=== PATIENT | female | born 1945 | race Caucasian/White ===

== ENCOUNTER 2024-02-15 08:19 | Observation (INO) | payer MEDICARE, OTHER ==
[2024-02-15 09:27] LABS: #Basophils 0.04 10x3/uL (0.0-0.2); #Eosinphils 0.01 10x3/uL (0.0-0.5); #Monocytes 1.27 10x3/uL (0.0-1.1); #Neutrophils 14.84 10x3/uL (1.5-8.4); %Basophils 0.2 % (0.0-2.0); %Eosinophils 0.1 % (0.0-6.0); %Lymphocytes 8.9 % (18.0-47.0); %Monocytes 7.1 % (0.0-10.0); %Neutrophils 83.1 % (40.0-75.0); Hemoglobin 13.3 g/dL (12.0-15.5); Mean Corpuscular HGB CONC 34.1 g/dL (32.0-36.0); Mean Corpuscular Hemoglobin 30.6 pg (27.0-33.0); Mean Corpuscular Volume 89.7 fL (81.6-98.3); Mean Platelet Volume 10.6 fL (7.4-10.4); Platelet Count 265 10x3/uL (150-450); Red Blood Cell (RBC) Count 4.35 10x6/uL (3.90-5.03); White Blood Cell (WBC) Count 17.9 10x3/uL (3.5-10.5)
[2024-02-15 09:45] LABS: ALT (SGPT) 21 U/L (8-55); AST (SGOT) 16 U/L (5-34); Albumin 3.9 g/dL (3.4-4.8); Alkaline Phosphatase 55 U/L (40-110); Anion Gap 14 mmol/L (10-20); BUN (Urea Nitrogen) 12 mg/dL (9.8-20.1); Bilirubin, Total 0.6 mg/dL (0.2-1.2); Calc. Creatinine Clearance 0 mL/min (70-130); Calcium 8.8 mg/dL (7.8-10.44); Carbon Dioxide 23 mmol/L (23-31); Chloride 108 mmol/L (98-107); Estimated GFR 79; Globulin 3.1 g/dL (2.4-3.5); Glucose 145 mg/dL (83-110); Potassium 3.5 mmol/L (3.5-5.1); Sodium 141 mmol/L (136-145)
[2024-02-15 16:30] VITALS: BMI 29.2
[2024-02-16 03:36] LABS: #Basophils 0.02 10x3/uL (0.0-0.2); #Eosinphils 0.01 10x3/uL (0.0-0.5); #Monocytes 1.67 10x3/uL (0.0-1.1); #Neutrophils 15.93 10x3/uL (1.5-8.4); %Basophils 0.1 % (0.0-2.0); %Eosinophils 0.1 % (0.0-6.0); %Lymphocytes 8.6 % (18.0-47.0); %Monocytes 8.6 % (0.0-10.0); %Neutrophils 81.9 % (40.0-75.0); Hematocrit 35.7 % (34.9-44.5); Hemoglobin 11.9 g/dL (12.0-15.5); Mean Corpuscular HGB CONC 33.3 g/dL (32.0-36.0); Mean Corpuscular Hemoglobin 30.5 pg (27.0-33.0); Mean Corpuscular Volume 91.5 fL (81.6-98.3); Mean Platelet Volume 10.3 fL (7.4-10.4); Platelet Count 233 10x3/uL (150-450); RBC Distribution Width 14.5 % (11.5-14.5); White Blood Cell (WBC) Count 19.4 10x3/uL (3.5-10.5)
[2024-02-16 08:07] VITALS: BP 104/51; TEMP 98
== END 2024-02-16 13:35 | disposition home or self-care (01) ==
LOC: CSHERS 08:19 → CSHTELE 16:01
PROVIDERS: ADMIT Surgery; ATTEND Surgery
PROC: 0DTJ4ZZ Resection of Appendix, Percutaneous Endoscopic Approach (ICD-10-PCS; principal; 2024-02-15)
DX: C18.1 Malignant neoplasm of appendix (principal); K35.80 Unspecified acute appendicitis
CPT/HCPCS: 44970; 70450; 70496; 70498; 74177; 80053; 82378; 85025 ×2; 93005; 94760; 94762; 96374; 96375; 99285; C1776; J0171; J0665; J1100; J1650; J1885 ×2; J2270; J2272; J2405; J2543; J2704; J3480 ×2; Q9967 ×2; 36415; 88304; 88313; 88341; 88342; 88361; A4649

== ENCOUNTER 2024-03-25 08:01 | Day surgery (SDC) | payer MEDICARE, OTHER ==
[2024-03-22 13:36] VITALS: BMI 28.5
[~2024-03-25 08:01] MED LIST: Lidocaine 2% MPF 10 ML AMP (For Epidural Use) ONE; PROPOFOL 60 ML ONE
== END 2024-03-25 08:35 | disposition home or self-care (01) ==
LOC: CSHSDC 08:01
PROVIDERS: ATTEND Surgery
DX: D12.3 Benign neoplasm of transverse colon (principal); C18.1 Malignant neoplasm of appendix; K62.1 Rectal polyp; Z90.49 Acquired absence of other specified parts of digestive tract; Z98.890 Other specified postprocedural states; Z79.899 Other long term (current) drug therapy
CPT/HCPCS: 45380; 45385; J2704; 88305

== ENCOUNTER 2024-05-13 06:20 | Day surgery (SDC) | payer MEDICARE, OTHER ==
[2024-05-09 08:44] VITALS: BMI 27.8
[2024-05-13] MEDS ORDERED: Lidocaine 2% PF 5 ML VIAL ONE (09:04)
[2024-05-13] MEDS ORDERED: PROPOFOL 20 ML ONE (09:04)
[2024-05-13] MEDS ORDERED: Bupivacaine HCl 0.5%/Epinephrine 1:200,000/PF 30 ml Vial ONE (09:20)
[2024-05-13] MEDS ORDERED: CEFAZOLIN 2 GM VIAL ONE (09:20)
[2024-05-13] MEDS ORDERED: Dexamethasone 4 mg/ml Vial ONE (09:23)
[2024-05-13] MEDS ORDERED: Ondansetron PF 4 MG/2 ML Vial ONE (09:23)
[2024-05-13] MEDS ORDERED: fentaNYL 50 mcg/mL 1 mL Vial ONE (09:49)
== END 2024-05-13 11:35 | disposition home or self-care (01) ==
LOC: CSHSDC 06:20
PROVIDERS: ATTEND Surgery
PROC: 0JH63WZ Insertion of Totally Implantable Vascular Access Device into Chest Subcutaneous Tissue and Fascia, Percutaneous Approach (ICD-10-PCS; principal; 2024-05-13)
DX: C18.1 Malignant neoplasm of appendix (principal); I10 Essential (primary) hypertension; Z79.899 Other long term (current) drug therapy; K21.9 Gastro-esophageal reflux disease without esophagitis
CPT/HCPCS: 36561; 71045; J1100; J1642; J2001; J2405; J2704; J3010; A6258; C1788

== ENCOUNTER 2025-04-25 09:10 | Day surgery (SDC) | payer MEDICARE, OTHER ==
[2025-04-22 08:42] VITALS: BMI 28.5
[2025-04-25] MEDS ORDERED: PROPOFOL 20 ML ONE (12:08)
== END 2025-04-25 13:45 | disposition home or self-care (01) ==
LOC: CSHSDC 09:10
PROVIDERS: ATTEND Surgery
PROC: 0DBM8ZZ Excision of Descending Colon, Via Natural or Artificial Opening Endoscopic (ICD-10-PCS; principal; 2025-04-25)
PROC: 0DBN8ZZ Excision of Sigmoid Colon, Via Natural or Artificial Opening Endoscopic (ICD-10-PCS; 2025-04-25)
DX: D12.4 Benign neoplasm of descending colon (principal); D12.5 Benign neoplasm of sigmoid colon; C18.1 Malignant neoplasm of appendix; I10 Essential (primary) hypertension; Z79.899 Other long term (current) drug therapy
CPT/HCPCS: 45385; J2704; 88305